=== PATIENT | male | born 1985 | race Caucasian/White ===

== ENCOUNTER 2018-09-08 07:36 | Emergency (ER) | payer MEDICAID, SELFPAY ==
[2018-09-08 07:37] VITALS: BP 177/94; PULSE 101; RESP 22; TEMP 36.1; O2SAT 95; BMI 63.9
--- NOTE | 2018-09-08 07:47 | RAD_ITS ---
STUDY: X-RAY CHEST REASON FOR EXAM: Male, 33 years old. Cough. Shortness of breath. TECHNIQUE: PA and lateral views of the chest. COMPARISON: November 15, 2013. FINDINGS: Low lung volumes. Cardiac silhouette unremarkable. Mild vascular congestion/crowding. Aorta unremarkable. No focal patchy airspace opacities. No pleural effusions. Upper abdomen unremarkable. Osseous structures intact. No pneumothorax. RAD/Chest PA and Lateral IMPRESSION: No focal patchy airspace opacities or pleural effusions Mild vascular congestion/crowding Electronically Signed: Jc Vann DO at 8:20 EDT Tel , Service support ,
--- NOTE | 2018-09-08 07:48 | ED.VIS.GEN ---
History of Present Illness Chief Complaint: Asthma Informant: Patient Onset: Days Current Severity: Mild Narrative: The patient reports history of asthma for his whole life, he is out of his inhaler, he indicates that on Wednesday he began having a slight runny nose and a harsh cough, that persisted he came in for evaluation. He has no history of ND PE DVT, reports he had pneumonia in December he was treated by some outpatient clinic near [facility] he did not help with his physicians and is concerned he had pneumonia again he is otherwise been very healthy he has had completely otherwise negative review of systems no fever the cough only no chest pain shortness of breath no abdominal pain normal bowel bladder habits no numbness weeks paresthesias, he is a very large individual and indicates his general health is been very stable, he did not have his inhaler as he has not seen his physician for follow-up in some time Past Medical History - Allergies and Home Meds Allergies/Adverse Reactions: Allergies No Known Allergies Allergy (Verified 09/08/18 07:37) Primary Care Physician: Eliane Bergeron PA [Primary Care Provider] - Past Medical History: - Smoking Status: Current every day smoker Review of Systems ROS: - Asthma see above General: Denies: Chills, Fever, Sweats Eyes: Denies: Visual changes - bilaterally, Diplopia ENT: Denies: Rhinorrhea, Sore throat Cardiovascular: Denies: Chest pain, Palpitations Respiratory: Reports: Cough. Denies: Dyspnea, Dyspnea on exertion Gastrointestinal: Denies: Abdominal pain, Nausea, Vomiting, Diarrhea, Melena, Hematochezia Genitourinary: Denies: Dysuria, Hematuria, Frequency Musculoskeletal: Denies: Back pain, Extremity Pain Skin: Denies: Rash, Wounds Neurological: Denies: Headache, Weakness, Numbness Physical Exam Vital Signs/Narrative: Vital Signs Temp Pulse Resp BP Pulse Ox 09/08/18 07:37 97 F L 101 H 22 H 177/94 H 95 General: Well nourished, Well developed, No Acute Distress, - - Is in no distress is a very large individual his nose is slightly congested throat and airway are completely normal Head: Normocephalic, Atraumatic Eyes: Perrl, EOMI ENT: Moist mucous membranes, No rhinorrhea Neck: Supple, Nontender Cardiovascular: Regular rate, Regular rhythm, No murmurs Respiratory: No distress, Chest nontender, Wheezing, - - He has very minimal wheezing is good excursion he has no cough here Abdomen: Soft, Nontender, Nondistended, Normal bowel sounds Back: Nontender, Normal Inspection Extremities: Nontender, No edema Skin: Normal color, No rash Neurological: Alert, Oriented x3, Cranial nerves II-XII grossly intact, Normal Strength, Normal Sensation Psychological: Normal affect, Normal Mood Diagnostic/Tx/Re-eval - Medical Decision Making Clinically his vital signs are normal his physical exam is unremarkable there is no respiratory distress he has a cough by history but is not coughing here he does have some nasal congestion he has no history of ND PE or DVT given all the above which with an inhaler and chest x-ray The patient's chest x-ray per radiology shows nothing acute questionable mild pulmonary congestion see that report,, he is a very large individual, on reevaluation patient states he is feeling better I discussed the x-ray finding with him I discussed the concept the potential for congestive heart failure we discussed ED work-up with labs EKG and other work-up etc. He declined all of that saying he felt better want to go home prefer follow-up with his outpatient providers to be given prescription for Proventil return for change in symptoms Home stable Final impression Cough, exacerbation of asthma, questionable mild pulmonary congestion on chest x-ray ED Disposition - Plan for ED Patient: Diagnosis: Asthma attack Instructions: ASTHMA, Acute (Adult) Prescriptions: Albuterol Inhaler [Ventolin Hfa] 1 - 2 puff INHALATION Q4H PRN PRN #1 inhaler PRN Reason: Wheezing Prescription Printed Referrals: Eliane Bergeron PA [Primary Care Provider] -
[2018-09-08 07:50] VITALS: O2SAT 97
[2018-09-08 07:52] VITALS: PULSE 90; RESP 14
[2018-09-08] MEDS: Ipratropium/Albuterol Sulfate 3 ML AMPUL.NEB INHALATION (07:52)
[2018-09-08 09:31] VITALS: BP 134/77; PULSE 76; RESP 16; O2SAT 99
== END 2018-09-08 09:33 | disposition home or self-care (01) ==
LOC: ED 08:16
PROVIDERS: Emergency Provider Emergency Medicine; Family Provider Physician Assistant; PCP Physician Assistant
DX: J45.901 Unspecified asthma with (acute) exacerbation (principal); R05 Cough; F17.200 Nicotine dependence, unspecified, uncomplicated; Z79.51 Long term (current) use of inhaled steroids
CPT/HCPCS: 71046; 94640; 99282

== ENCOUNTER → 2019-04-20 | Outpatient (CLI) | payer MEDICAID, SELFPAY ==
--- NOTE | 2019-04-20 07:28 | EKG12_ITS ---
Test Reason : BASELINE Blood Pressure : / mmHG Vent. Rate : 087 BPM Atrial Rate : 087 BPM P-R Int : 152 ms QRS Dur : 080 ms QT Int : 364 ms P-R-T Axes : 044 052 076 degrees QTc Int : 438 ms Normal sinus rhythm Nonspecific T wave abnormality Abnormal ECG Confirmed by ENRIQUE TORRES, BRENDA ([id number]), general expeditor SHAMIR CROCKER ([id number]) on 04/21/2019 1:06:11 PM Referred By: LIONEL MOTA Confirmed By:ABDOULAYE NUNEZ MD
[2019-04-20 08:15] LABS: Hemoglobin A1c 6.3 % (4.2-6.3)
[2019-04-20 08:19] LABS: ALB/GLOB Ratio 0.7 RATIO (0.9-2.4); AST(SGOT) 29 U/L (15-37); Alanine Aminotransfer ALT/SGPT 39 U/L (16-61); Albumin, Serum 3.3 g/dL (3.2-5.0); Alkaline Phosphatase 62 U/L (45-117); Anion Gap 3 (5-15); BUN 7 mg/dL (7-18); BUN/Creat Ratio 7.5 RATIO (10-20); Bilirubin, Direct 0.14 mg/dL (0.00-0.30); Calcium,Total 8.3 mg/dL (8.5-10.1); Chloride 105 mmol/L (98-107); Cholesterol 172 mg/dL (200); Creatinine, Serum 0.94 mg/dL (0.70-1.30); EST Glomerular Filtration Rate 98 mL/min (>60); Est Glom Filt Rate - Afr Amer 119 mL/min (>60); Globulin 4.6 g/dL (2.2-4.2); Glucose 125 mg/dL (74-106); High Density Lipoprotein 40 mg/dL; Potassium 3.7 mmol/L (3.5-5.1); Protein, Total 7.9 g/dL (6.4-8.2); Sodium Level 139 mmol/L (136-145); Thyroid Stim Hormone (TSH) 1.95 uIU/mL (0.358-3.74); Triglycerides 75 mg/dL; Very Low Density Lipoprotein 15 mg/dL (5-40)
[2019-04-20 11:35] LABS: Absolute Lymphocyte Count 2.14 X10^3/uL (0.83-4.51); Absolute Neutrophil Count 5.3 X10^3/uL (2.0-7.7); Basophil# 0.13 X10^3/uL; Basophil% 1.5 % (0-1); Eosinophil# 0.42 X10^3/uL; Eosinophils% 4.9 % (0-5); Hematocrit 48.7 % (40-54); Hemoglobin 16.1 g/dL (13.0-16.5); Lymphocyte # 2.14 X10^3/ul (4.0); Mean Corp Hgb Conc 33.1 g/dL (32-36); Mean Corpuscular Hgb 31.1 pg (27.0-32.0); Mean Corpuscular Volume 94.2 fL (80-94); Mean Platelet Vol. 9.6 fl (6.2-12.0); Monocyte# 0.54 X10^3/uL; Monocyte% 6.3 % (0-10); NRBC Flagged by Analyzer 0 % (0-5); Neutrophil % 62.1 % (47-70); Platelet Count 309 K/mm3 (150-450); RBC Distribution Width CV 13.1 % (11.6-14.6); RBC Distribution Width SD 44.9 fl (35.1-43.9); Red Blood Count 5.17 M/mm3 (4.6-6.2); White Blood Count 8.6 K/mm3 (4.4-11.0)
== END | disposition home or self-care (01) ==
LOC: LAB 07:19
PROVIDERS: PCP Family Medicine
DX: Z79.899 Other long term (current) drug therapy (principal)
CPT/HCPCS: 36415; 80053; 80061; 82140; 82248; 83036; 84443; 85025; 93005